=== PATIENT | female | born 1995 | race Caucasian/White ===

== ENCOUNTER 2017-02-27 03:16 | Inpatient (IN) | payer BC ==
[2017-02-27] MEDS ORDERED: NS 0.9% 1000 ML* 1,000 ML IV ONE (03:46)
[2017-02-27] MEDS ORDERED: Ketorolac INJ* 30 MG/ML 1 ML VIAL IV PUSH ONE (03:47)
[2017-02-27 03:57] LABS: Hematocrit 43 % (35-47); Mean Corpuscular HGB Conc 33 g/dl (31-36); Mean Corpuscular Hemoglobin 26 pg (27-31); Mean Corpuscular Volume 79 fL (80-97); Mean Platelet Volume 9 um3 (7.4-10.4); Red Blood Count 5.41 10^6/ul (4.0-5.4); Red Cell Distribution Width 15 % (10.5-15); White Blood Count 11.6 10^3/ul (3.5-10.8)
[2017-02-27 04:08] LABS: ALT 27 U/L (7-52); AST 32 U/L (13-39); Albumin 3.9 g/dL (3.2-5.2); Alkaline Phosphatase 63 U/L (34-104); Anion Gap 5 mmol/L (2-11); BUN/Creatinine Ratio 17.9 (8-20); Blood Urea Nitrogen 15 mg/dL (6-24); CO2 Carbon Dioxide 24 mmol/L (22-32); Calcium 8.7 mg/dL (8.6-10.3); Chloride 104 mmol/L (101-111); EGFR African American 112.3 (>60); EGFR Non-African American 87.3 (>60); Globulin 2.6 g/dL (2-4); Glucose 121 mg/dL (70-100); Potassium 3.9 mmol/L (3.5-5.0); Sodium 133 mmol/L (133-145); Total Protein 6.5 g/dL (6.4-8.9)
[2017-02-27 04:11] LABS: Troponin I 1.99 ng/mL (<0.04)
--- NOTE | 2017-02-27 04:12 | ED ---
Marcin Simon Alfonso, scribed for Tomas Smith MD on 02/27/17 at 0349 . HPI Chest Pain - HPI Summary HPI Summary: This patient is a 21 year old female presenting to [facility] c/o diffuse pressured chest pain since two days ago. She reports the constant pain has gradually became worse. The pain is rated 5/10 in severity. Her CP is not alleviated by ibuprofen. Sx aggravated by position and alleviated by nothing. She reports a headache since 5 days ago. She denies N/V, SOB, cough, and fever. Patient states she thinks this is a "lupus flare." No PMHx of cardiac disease per patient. - History of Current Complaint Chief Complaint: EDGeneral Hx Obtained From: Patient Onset/Duration: Started Days Ago - 2 days, Atraumatic, Worse Since Timing: Constant Initial Severity: Moderate Current Severity: Moderate Pain Intensity: 5 Pain Scale Used: 0-10 Numeric Chest Pain Location: Diffuse Character: Pressure/Squeezing Aggravating Factor(s): Position Alleviating Factor(s): Nothing Associated Signs and Symptoms: Positive: Chest Pain - Pressued CP, Headaches. Negative: Shortness of Breath, Fever, Nausea, Cough, Vomiting - Allergy/Home Medications Allergies/Adverse Reactions: Allergies Allergy/AdvReac Type Severity Reaction Status Date / Time Bacitracin [From Neosporin] Allergy Intermediate Blisters Verified 02/27/17 03: 25 Neomycin [From Neosporin] Allergy Intermediate Blisters Verified 02/27/17 03:25 Polymyxin B [From Neosporin] Allergy Intermediate Blisters Verified 02/27/17 03: 25 Home Medications: Home Medications NK [No Home Medications Reported] 02/27/17 [History Confirmed 02/27/17] PMH/Surg Hx/FS Hx/Imm Hx Sensory History: Denies: Hx Deafness Opthamlomology History: Denies: Hx Legally Blind Infectious Disease History: No Infectious Disease History: Denies: Traveled Outside the [place] in Last 30 Days - Family History Known Family History: Positive: Other - Cancers - Social History Lives: With Family - Mother Alcohol Use: Occasionally Substance Use Type: Reports: None Smoking Status (MU): Never Smoked Tobacco Have You Smoked in the Last Year: No Review of Systems Negative: Fever Positive: Chest Pain - Pressured CP for 2 days Negative: Shortness Of Breath, Cough Negative: Vomiting, Nausea Positive: Headache - 5 days All Other Systems Reviewed And Are Negative: Yes Physical Exam Triage Information Reviewed: Yes Vital Signs On Initial Exam: Initial Vitals Temp Pulse Resp BP Pulse Ox 99.0 F 124 16 118/66 99 02/27/17 03:20 02/27/17 03:20 02/27/17 03:20 02/27/17 03:20 02/27/17 03:20 Vital Signs Reviewed: Yes Appearance: Positive: Well-Appearing, Pain Distress - mild discomfort Skin: Positive: Warm Head/Face: Positive: Normal Head/Face Inspection Eyes: Positive: GERALD ENT: Positive: Hearing grossly normal, Pharynx normal Neck: Positive: Supple Respiratory/Lung Sounds: Positive: Clear to Auscultation, Breath Sounds Present Cardiovascular: Positive: RRR. Negative: Murmur Abdomen Description: Positive: Nontender, Soft Bowel Sounds: Positive: Present Musculoskeletal: Positive: Strength/ROM Intact Neurological: Positive: Sensory/Motor Intact, Alert, Oriented to Person Place, Time, Normal Gait - Soledad Coma Scale Coma Scale Total: 15 Diagnostics - Vital Signs Vital Signs Temp Pulse Resp BP Pulse Ox 02/27/17 03:31 99.1 F 125 18 106/54 100 02/27/17 03:20 99.0 F 124 16 118/66 99 - Laboratory Lab Results: Lab Results 02/27/17 02/27/17 02/27/17 Range/Units 03:31 03:31 03:31 WBC 11.6 H (3.5-10.8) 10^3/ul RBC 5.41 H (4.0-5.4) 10^6/ul Hgb 14.0 (12.0-16.0) g/dl Hct 43 (35-47) % MCV 79 L (80-97) fL MCH 26 L (27-31) pg MCHC 33 (31-36) g/dl RDW 15 (10.5-15) % Plt Count 116 L (150-450) 10^3/ul MPV 9 (7.4-10.4) um3 Neut % (Auto) 72.3 (38-83) % Lymph % (Auto) 13.5 L (25-47) % [place] % (Auto) 13.2 H (1-9) % Eos % (Auto) 0.7 (0-6) % Baso % (Auto) 0.3 (0-2) % Absolute Neuts (auto) 8.4 H (1.5-7.7) 10^3/ul Absolute Lymphs (auto) 1.6 (1.0-4.8) 10^3/ul Absolute Monos (auto) 1.5 H (0-0.8) 10^3/ul Absolute Eos (auto) 0.1 (0-0.6) 10^3/ul Absolute Basos (auto) 0 (0-0.2) 10^3/ul Absolute Nucleated RBC 0 10^3/ul Nucleated RBC % 0 Sodium 133 (133-145) mmol/L Potassium 3.9 (3.5-5.0) mmol/L Chloride 104 (101-111) mmol/L Carbon Dioxide 24 (22-32) mmol/L Anion Gap 5 (2-11) mmol/L BUN 15 (6-24) mg/dL Creatinine 0.84 (0.51-0.95) mg/dL Est GFR ( Amer) 112.3 (>60) Est GFR (Non-Af Amer) 87.3 (>60) BUN/Creatinine Ratio 17.9 (8-20) Glucose 121 H (70-100) mg/dL Lactic Acid 1.1 (0.5-2.0) mmol/L Calcium 8.7 (8.6-10.3) mg/dL Total Bilirubin 0.50 (0.2-1.0) mg/dL AST 32 (13-39) U/L ALT 27 (7-52) U/L Alkaline Phosphatase 63 (34-104) U/L Troponin I 1.99 H* (<0.04) ng/mL Total Protein 6.5 (6.4-8.9) g/dL Albumin 3.9 (3.2-5.2) g/dL Globulin 2.6 (2-4) g/dL Albumin/Globulin Ratio 1.5 (1-3) Result Diagrams: 02/27/17 03:31 02/27/17 03:31 Lab Statement: Any lab studies that have been ordered have been reviewed, and results considered in the medical decision making process. - Radiology CXR Radiology Interpretation Completed By: ED Physician - No acute disease - CT Chest/Thorax CTA CT Interpretation Completed By: Radiologist - No evidence of pathology - EKG 0329 Cardiac Rate: Tachycardia - BPM 124 EKG Rhythm: Sinus Tachycardia 0531 Cardiac Rate: Tachycardia - BPM 120 EKG Rhythm: Sinus Tachycardia EKG Comparison: No Significant Change - 32802/27/2017 Re-Evaluation - Re-Evaluation First Eval Change: Improved - pt with cp, pain free now and elevated troponins, case d/w hospitalist who discussed case with fisher seal Chest Pain Course/Dx - Diagnoses Provider Diagnoses: ACS (acute coronary syndrome) - Provider Notifications Discussed Care Of Patient With: Cornelius Meza Time Discussed With Above Provider: 05:28 Instructed by Provider To: Admit As Inpatient - Consulted Dr. Meza ( Hospitalist) who agrees to admit. - Critical Care Time Critical Care Time: 30-74 min Discharge - Discharge Plan Condition: Fair Disposition: ADMITTED TO [facility] [place] The documentation as recorded by the Marcin woodruff Alfonso accurately reflects the service I personally performed and the decisions made by , Tomas Smith MD.
[2017-02-27 04:37] LABS: C Reactive Protein 14.62 mg/L (< 5.00)
[2017-02-27] MEDS ORDERED: Iohexol 350* (CONTRAST) 500 ML MDV IV ONE (04:46)
[2017-02-27 05:18] LABS: Benzodiazepine Urine Screen None Detected (None Detect)
[2017-02-27 05:26] LABS: Troponin I 3.32 ng/mL (<0.04)
--- NOTE | 2017-02-27 05:35 | HP ---
H&P (Free Text) History and Physical: PCP: Kaelyn Byrnes MD Date/Time of Evaluation: 02/27/2017 0440 CC: chest pain HPI: Ms Alcazar is a 21YO female HX cutaneous lupus & urolithiasis who presents with non-exertional, non-radiating dull/pressure-like chest pain for the past 2 days. Pain was initially intermittent becoming continuous Tuesday evening. Around ~0200 her phone woke her up and she noticed the chest pain to be 7/10, the worst thus far which kept her awake, but has since spontaneously decreased to 2/10. She received IV ketorolac with subsequent resolution of pain. She denies associated SOB, palpitations, N/V sweats, or light-headedness. She denies HX of similar. Initial troponin was 1.9 with an ECG showing sinus tachycardia in the 120s, no ischemia. A repeat troponin was drawn and sent revealing an increase to 3.3 with a repeat ECG showing dynamic changes in the inferior leads. A CTA chest was reported as negative for PE, aneurysm, and dissection. Case was reviewed with Kristy Fajardo MD cardiology who deferred to Julio Moore MD interventional cardiology who was apprised of the situation and is en route to evaluate. PMedHx cutaneous lupus erythematosus urolithiasis headaches Ambulatory Orders Vitamin D-1000 12/29/12 Prozac 40 mg PO Q24HR 12/03/13 Allergies Bacitracin [From Neosporin] Allergy (Intermediate, Verified 02/27/17 03:25) Blisters Neomycin [From Neosporin] Allergy (Intermediate, Verified 02/27/17 03:25) Blisters Polymyxin B [From Neosporin] Allergy (Intermediate, Verified 02/27/17 03:25) Blisters PSurgHx T&A tympanostomy tubes SocHx: no tobacco, rare alcohol, denies recreational drugs; single, no children ; lives with her mother; full code status FamHx: maternal great GF: passed of CAD in his 50s; maternal aunt: DVT ROS: as above, otherwise reviewed and all were negative Constitutional: NAD, normally developed, overweight white female vitals: Vital Signs Temp 37.3 C 02/27/17 03:31 Pulse 119 02/27/17 05:06 Resp 18 02/27/17 05:06 BP 96/62 02/27/17 04:19 Pulse Ox 100 02/27/17 05:06 Intake & Output 02/26/17 02/26/17 02/27/17 11:59 23:59 11:59 Weight 70.307 kg HEENM: atraumatic; sclera/conjunctiva: non-icteric/clear; hearing: clinically intact; oropharynx: clear, mucosa moist Pulmonary: clear to auscultation bilaterally, good aeration, no accessory muscle use CV: RR/RR, normal S1S2, no carotid bruit, no jugular venous distention, 2+ B DP/ PT, no edema Abdominal: soft, non-distended, non-tender, no rebound/guarding/rigidity, normoactive bowel sounds, no hepatosplenomegaly or masses, no costovertebral angle tenderness Musculoskeletal: general: grossly intact; gait: stable Integumental: normal appearance and texture of exposed skin Psychiatric orientation: AA&O to PPS affect: calm mood: pleasant eye contact: good content: reliable responses: timely insight: good Testing: Lab Results 02/27/17 02/27/17 02/27/17 Range/Units 03:31 03:31 03:31 WBC 11.6 H (3.5-10.8) 10^3/ul RBC 5.41 H (4.0-5.4) 10^6/ul Hgb 14.0 (12.0-16.0) g/dl Hct 43 (35-47) % MCV 79 L (80-97) fL MCH 26 L (27-31) pg MCHC 33 (31-36) g/dl RDW 15 (10.5-15) % Plt Count 116 L (150-450) 10^3/ul MPV 9 (7.4-10.4) um3 Neut % (Auto) 72.3 (38-83) % Lymph % (Auto) 13.5 L (25-47) % [place] % (Auto) 13.2 H (1-9) % Eos % (Auto) 0.7 (0-6) % Baso % (Auto) 0.3 (0-2) % Absolute Neuts (auto) 8.4 H (1.5-7.7) 10^3/ul Absolute Lymphs (auto) 1.6 (1.0-4.8) 10^3/ul Absolute Monos (auto) 1.5 H (0-0.8) 10^3/ul Absolute Eos (auto) 0.1 (0-0.6) 10^3/ul Absolute Basos (auto) 0 (0-0.2) 10^3/ul Absolute Nucleated RBC 0 10^3/ul Nucleated RBC % 0 D-Dimer, Quantitative (Less Than 230) ng/mL Sodium 133 (133-145) mmol/L Potassium 3.9 (3.5-5.0) mmol/L Chloride 104 (101-111) mmol/L Carbon Dioxide 24 (22-32) mmol/L Anion Gap 5 (2-11) mmol/L BUN 15 (6-24) mg/dL Creatinine 0.84 (0.51-0.95) mg/dL Est GFR ( Amer) 112.3 (>60) Est GFR (Non-Af Amer) 87.3 (>60) BUN/Creatinine Ratio 17.9 (8-20) Glucose 121 H (70-100) mg/dL Lactic Acid 1.1 (0.5-2.0) mmol/L Calcium 8.7 (8.6-10.3) mg/dL Total Bilirubin 0.50 (0.2-1.0) mg/dL AST 32 (13-39) U/L ALT 27 (7-52) U/L Alkaline Phosphatase 63 (34-104) U/L Total Creatine Kinase Pending CK-MB (CK-2) Pending Troponin I 1.99 H* (<0.04) ng/mL C-Reactive Protein 14.62 H (< 5.00) mg/L Total Protein 6.5 (6.4-8.9) g/dL Albumin 3.9 (3.2-5.2) g/dL Globulin 2.6 (2-4) g/dL Albumin/Globulin Ratio 1.5 (1-3) Beta HCG, Quant < 0.60 mIU/mL Urine Opiates Screen (None Detect) Ur Barbiturates Screen (None Detect) Ur Phencyclidine Scrn (None Detect) Ur Amphetamines Screen (None Detect) U Benzodiazepines Scrn (None Detect) Urine Cocaine Screen (None Detect) U Cannabinoids Screen (None Detect) 02/27/17 02/27/17 02/27/17 Range/Units 03:31 04:54 04:54 WBC (3.5-10.8) 10^3/ul RBC (4.0-5.4) 10^6/ul Hgb (12.0-16.0) g/dl Hct (35-47) % MCV (80-97) fL MCH (27-31) pg MCHC (31-36) g/dl RDW (10.5-15) % Plt Count (150-450) 10^3/ul MPV (7.4-10.4) um3 Neut % (Auto) (38-83) % Lymph % (Auto) (25-47) % [place]ie % (Auto) (1-9) % Eos % (Auto) (0-6) % Baso % (Auto) (0-2) % Absolute Neuts (auto) (1.5-7.7) 10^3/ul Absolute Lymphs (auto) (1.0-4.8) 10^3/ul Absolute Monos (auto) (0-0.8) 10^3/ul Absolute Eos (auto) (0-0.6) 10^3/ul Absolute Basos (auto) (0-0.2) 10^3/ul Absolute Nucleated RBC 10^3/ul Nucleated RBC % D-Dimer, Quantitative 507 H (Less Than 230) ng/mL Sodium (133-145) mmol/L Potassium (3.5-5.0) mmol/L Chloride (101-111) mmol/L Carbon Dioxide (22-32) mmol/L Anion Gap (2-11) mmol/L BUN (6-24) mg/dL Creatinine (0.51-0.95) mg/dL Est GFR ( Amer) (>60) Est GFR (Non-Af Amer) (>60) BUN/Creatinine Ratio (8-20) Glucose (70-100) mg/dL Lactic Acid (0.5-2.0) mmol/L Calcium (8.6-10.3) mg/dL Total Bilirubin (0.2-1.0) mg/dL AST (13-39) U/L ALT (7-52) U/L Alkaline Phosphatase (34-104) U/L Total Creatine Kinase 174 CK-MB (CK-2) 17.4 H Troponin I 3.32 H* (<0.04) ng/mL C-Reactive Protein (< 5.00) mg/L Total Protein (6.4-8.9) g/dL Albumin (3.2-5.2) g/dL Globulin (2-4) g/dL Albumin/Globulin Ratio (1-3) Beta HCG, Quant mIU/mL Urine Opiates Screen None detected (None Detect) Ur Barbiturates Screen None detected (None Detect) Ur Phencyclidine Scrn None detected (None Detect) Ur Amphetamines Screen None detected (None Detect) U Benzodiazepines Scrn None detected (None Detect) Urine Cocaine Screen None detected (None Detect) U Cannabinoids Screen None detected (None Detect) ECG, personally reviewed: sinus tachycardia rate 124, no ischemia : repeat: sinus tachycardia rate 120, ST flattening in II/AVF with newly inverted T-wave in III CXR, personally reviewed: no acute pathology CTA chest, personally reviewed: no PE, final report pending Impression: 21F HX cutaneous lupus presents with atypical chest pain and elevation of troponin DIAGNOSIS & PLAN Primary NSTEMI vs pericarditis/myocarditis : aspirin 324mg chew x1 : metoprolol 25mg PO x1 : heparin 4k units IV x1 : ticagrelor 180mg PO x1 : supplemental oxygen : Julio Moore MD interventional cardiology consulted, will evaluate in ED : ECHO this AM : ICU monitoring : supportive care Secondary cutaneous lupus erythematosis : consider rheumatology consult for input on possible relationship to above Admission Rational: inpatient for NSTEMI, inappropriate for outpatient setting DVTp: heparin GTT Code Status: full HCP: Mother
[2017-02-27] MEDS ORDERED: Metoprolol Tartrate TAB* 25 MG PO ONE (05:42)
[2017-02-27] MEDS ORDERED: Heparin DRIP 25,000 UNITS(*) 25,000 UNITS/500 ML BAG IVPB SCH (05:45)
[2017-02-27] MEDS ORDERED: Aspirin Low Dose CHEW TAB* 81 MG PO ONE (05:48)
[2017-02-27] MEDS ORDERED: Metoprolol Tartrate IV* 1 MG/ML 5 ML VIAL ONE (05:49)
[2017-02-27] MEDS ORDERED: Ticagrelor* 90 MG TAB PO ONE ×2 (05:49→05:50)
[2017-02-27] MEDS ORDERED: Heparin for STEMI(*) 5,000 UNITS/ML 1 ML VIAL IV ONE (05:49)
[2017-02-27] MEDS ORDERED: Metoprolol Tartrate TAB* 25 MG ONE (05:52)
[2017-02-27] MEDS ORDERED: Aspirin Low Dose CHEW TAB* 81 MG ONE (05:57)
[2017-02-27] MEDS ORDERED: Heparin VIAL(*) 5000 UNITS/ML VIAL (FIVE THOUSAND) IV PRN (06:33)
[2017-02-27 06:39] LABS: Creatine Kinase 118 U/L (10-223)
[2017-02-27] MEDS ORDERED: Heparin VIAL(*) 5000 UNITS/ML VIAL (FIVE THOUSAND) IV SCH (07:00)
[2017-02-27] MEDS ORDERED: Morphine INJ* 2 MG/ML 1 ML SYRINGE IV PRN ×2 (07:12→18:46)
[2017-02-27] MEDS ORDERED: Ondansetron INJ* 2 MG/ML VIAL IV PRN (07:12)
[2017-02-27] MEDS ORDERED: CMC:Melatonin (NF) 3 MG TAB PO PRN (07:12)
[2017-02-27] MEDS ORDERED: NS 0.9% 1000 ML* 1,000 ML IV SCH (07:15)
--- NOTE | 2017-02-27 07:53 | RAD ---
INDICATION: Chest pain. COMPARISON: Comparison is made with a prior study from March 11, 2014. TECHNIQUE: Dual-energy PA and lateral views of the chest were obtained. FINDINGS: The heart is within normal limits in size. Mediastinal and hilar contours appear within normal limits. The lungs are clear. No pleural effusion is present. IMPRESSION: NO EVIDENCE FOR ACTIVE CARDIOPULMONARY DISEASE.
--- NOTE | 2017-02-27 08:00 | RAD ---
INDICATION: Chest pain and elevated d-dimer. COMPARISON: Correlation is made with a prior chest x-ray study from February 27, 2017. TECHNIQUE: A CT angiogram of the chest was performed with intravenous following intravenous injection of 64 ml of Omnipaque 350 nonionic contrast. Contiguous axial sections were obtained from the lung apices through the lung bases. Images were reconstructed in the coronal and sagittal planes. FINDINGS: There is relatively homogeneous opacification of the pulmonary arteries. No intraluminal filling defect or pulmonary embolism is seen. The heart is within normal limits in size. No pericardial effusion is present. The thoracic aorta is normal in caliber and demonstrates homogeneous contrast opacification. No significant enlarged mediastinal or hilar lymph nodes are seen. There is soft tissue density in the anterior mediastinum most consistent with residual thymus tissue. The lungs are clear. No pleural effusion is seen. No significant focal osseous abnormality is seen. IMPRESSION: NO EVIDENCE FOR PULMONARY EMBOLISM.
[2017-02-27 08:03] LABS: Erythrocyte Sed Rate 10 mm/Hr (0-14)
--- NOTE | 2017-02-27 10:22 | CONSULT ---
Consult Consult: Ms. Sidra Alcazar is a 21 year old woman with a history of chronic intermittent tumid lupus. Prior workup in 2015 revealed a negative MANISH, and complements and DSDNA were normal in September 2016. Given the histologic findings of her skin as well as negative symptoms and serologies, it had been felt that her risk for progression to systemic lupus was low. She now presents with chest wall pain (now resolved), elevated troponin levels, elevated D Dimer, and ECG changes. We discussed that lupus, being a protean disease, may change, evolve, and become systemic, and myocarditis is a potential manifestation. Given the recent symptoms and findings, her DSDNA complements and urinalysis are being checked. I also added a repeat MANISH and ANAMIKA panel. If serologies are consistent with systemic lupus and she remains symptomatic, consider addition of corticosteroids. Will follow; thanks.
[2017-02-27] MEDS: Acetaminophen TAB* 325 MG PO PRN ×2 (10:52→17:59)
[2017-02-27 11:01] LABS: Urine Bacteria 1+ (Absent); Urine Bilirubin Negative (Negative); Urine Glucose Negative (Negative); Urine Nitrite Negative (Negative)
--- NOTE | 2017-02-27 13:29 | CONS ---
CONSULTATION REPORT: DATE OF CONSULT: 02/27/17 CONSULTING PHYSICIAN: Dr. Meza. REASON FOR CONSULT: Lupus. HISTORY OF PRESENT ILLNESS: Ms. Sidra Alcazar is a pleasant 21-year-old woman with a longstanding history of tumid lupus. She was seen by me in 2015. At the time, her connective tissue disease panel was negative and her double- stranded DNA and complements were normal. She was noted to have some hematuria , but it was felt to be possibly secondary to her menstrual cycle and she was advised to get a repeat urinalysis in 1 or 2 months. In terms of her tumid lupus, it has been biopsy proven and she has seen Dermatology for this. Whenever it flares, which can occur in periods of stress, she applies topical triamcinolone as needed. In terms of her more recent illness, she presented with non-exertional, dull-like pressure sensation along the mid part of her chest, which has been noted over the past 2 days. It became continuous on Tuesday evening and around 2 in the morning, she noted that with waking up, her chest pain to be around 7/10 and it progressed to the point that it was difficult to go back to sleep. It was somewhat related to taking a deep breath , but it decreased in severity to about 2/10. She came to the emergency room and was found to have an elevated troponin level. 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 She has received IV ketorolac and currently she feels well with resolution of her pain. She denies any other symptoms at this point, specifically she denies any shortness of breath, palpitations, sweating or lightheadedness. As noted above , her troponin was initially elevated and her EKG showed a sinus tachycardia, but no ischemic events. A more recent troponin was drawn and revealed an increase to 3.3 and there were some changes in the inferior leads on the EKG. A CT of the chest was negative for pulmonary embolism or dissection. Cardiology is following as well. In terms of her past history in regards to her potential connective tissue disorder in April 2016, an HIV was nonreactive and her antinuclear antibody was negative. Her double-stranded DNA was also negative at that time and her sed rate was normal at 10. She was seen by me in June and her skin biopsy was reviewed. She specifically had a punch biopsy done in January 2015, which showed a superficial and deep perivascular lymphocytic infiltrate with increased dermal mucin, they were nonspecific, but felt to be collections representative of tumid lupus erythematosus or a possible Jessner's lymphocytic infiltrate. There were no eosinophils seen and there was no basement membranes on thickening. PAST MEDICAL HISTORY: In terms of other past medical history, she has a history of urolithiasis in the past as well as history of anxiety and some headaches. PAST SURGICAL HISTORY: Includes tonsillectomy. Also she has had tympanostomy tubes placed as well too. MEDICATIONS: She had been on Prozac in the past for anxiety. ALLERGIES: Include BACITRACIN, NEOMYCIN and NEOSPORIN. FAMILY HISTORY: Notable for maternal great grandfather having coronary artery disease and maternal aunt had DVTs. Family history is also notable for thyroid disease in the past. SOCIAL HISTORY: No tobacco use. Rare alcohol use. No recreational drugs. She has no children and she lives with her mother who I also spoke with today. She has had no recent accidents or viral infections. REVIEW OF SYSTEMS: Constitutional: She denies dehydration, change in energy level, or weight loss. Eyes: Denies discharge, dryness, irritation or redness. ENT: She denies, dry mouth, hemoptysis, jaw pain or odynophagia. She denies difficulty swallowing. Cardiovascular: Currently denies chest wall pain , shortness of breath or irregular heart rate. Respiratory: Denies cough, night sweats or poor sleep quality except for last night. GI: Denies abdominal pain, anorexia, colitis, or gas or bloating. Musculoskeletal: She denies deformities, sciatica or muscle spasms. Skin: She has had a recent outbreak of her tumid lupus in her lower extremity along her feet, but it seems to have been resolving recently. She currently has very minimal if any residual rash from this. Neurologic: She denies any difficulties with balance, memory loss, numbness or tingling. Psychiatric: As noted above. PHYSICAL EXAMINATION: Vital Signs: Temperature is 37.3 degrees Celsius, pulse of initially 119, respiratory rate of 18, blood pressure of 96/62, pulse ox of 100%. Weight is 78.307 kg. General: She is a pleasant woman, sitting up, in no acute distress. HEENT: Normocephalic, atraumatic. Pupils equal, round, and reactive to light and accommodate. Extraocular movements are intact. Respiratory: Lungs are clear to auscultation bilaterally. Cardiovascular Exam : Revealed a regular rate and rhythm. Normal S1 and S2. No carotid bruits. No jugular venous distention and no edema. Abdomen: Soft, nontender, nondistended. No rebound, no guarding or rigidity. Normoactive bowel sounds with no hepatosplenomegaly. No costovertebral angle tenderness. Musculoskeletal: She had no synovitis of her joints. She had full range of motion of her joints. Integument: Appears to be normal in the upper extremities. There is minimal periungual erythema around the nail beds of the feet, but otherwise there are no abnormalities and no rash. Psychiatric: Pleasant, oriented. Normal affect. Neurologic: Motor strength 5/5 in the upper and lower extremities. : No CVA tenderness. Endocrine: No glandular swelling. Lymph: No lymph node swelling. DIAGNOSTIC STUDIES/LAB DATA: She had a white count initially of 11.6, hemoglobin of 14, platelet count of 116,000. Sodium 133, calcium 8.7. AST and ALT were normal. D-dimer was 507 and glucose of 121. Her troponin was initially 1.99, now went to 3.32. Urine drug screen was negative. Beta HCG was less than 0.6. Chest CT as noted above showed no evidence of pulmonary embolism. There is no lymphadenopathy noted. ASSESSMENT AND PLAN: Ms. Sidra Alcazar is a 21-year-old woman with longstanding history of tumid lupus. A more recent workup in 2016 revealed a negative MANISH, negative double-stranded DNA and normal complements. She now has chest wall pain syndrome which is resolved. There is a concern for possible myocarditis given her EKG findings and elevated troponin levels. Although her MANISH was negative in the past which makes systemic lupus erythematosus unlikely, we discussed how occasionally lupus being heterogeneous condition can change and evolve over time. Therefore, I am concerned about the possibility still of some sort of evolving condition towards systemic lupus. It is noted; however, that the histologic findings that she has had in the past, specifically tumid lupus seem to carry a very little, if any, risk for systemic lupus. However, she did have a lymphocytic infiltrate and so it should be considered whether she had some other overlapping form of cutaneous lupus and perhaps this represents an increased risk for systemic lupus. Therefore, I will check her urinalysis, especially in light of her history of hematuria. I would repeat the double- stranded DNA, complements. I would also like to recheck her antinuclear antibody. I would also like to check viral serologies including CMV given that she does have symptoms of myocarditis. I would check an extractable nuclear antigen panel and I do understand that complements are pending as well too. I think these will all be helpful in terms of seeing if she could have a risk for some kind of evolution to systemic lupus erythematous. Also consider a viral etiology as well. At this point in time, she is receiving conservative therapy. While corticosteroids may not specifically help an idiopathic myocarditis, they could be helpful if there is a concern for connective tissue disorder. Therefore, if her serologies and/or if her symptoms progress and are positive, then she may benefit from a trial of corticosteroids such as prednisone 60 mg daily. Otherwise, I would wait and see what these latest serologies show. In terms of her thrombocytopenia, I would also follow her CBC as well too. Overlap Pleuritic chest wall pain: agree with Motrin and trial of Colchicine. Thrombocytopenia: would follow. Hematuria: would follow; if lupus workup is negative, she will need follow up with urology as she has a history of hematuria [id number]/[facility] #: [id number] FRANCISCA
--- NOTE | 2017-02-27 14:19 | CONS ---
CC: Britt Byrnes MD; Krishna Harmon MD CARDIOLOGY CONSULTATION: I was kindly asked to see this patient for cardiology consultation by Dr. Meza and Dr. Lance. DATE OF CONSULT: 02/27/17 REASON FOR CARDIOLOGY CONSULTATION: Chest pain with elevated troponins, concern for non-Q-wave ID. HISTORY OF PRESENT ILLNESS: Ms. Alcazar is a 21-year-old lady with a history of cutaneous lupus. On 02/25/17, i.e. 2 days ago, she began noticing episodes of chest pain, which were coming and going, beginning in the afternoon of that date , lasting about 15 to 20 minutes and then would resolve. These were not associated with exertion. No associated shortness of breath. Yesterday, she was having the chest pain more consistently for up to 18 hours, ranging between 3/10 to 6/10. This morning, the patient's phone went off @ 0200 because of an ANGELICA alert and she noted that she was having 7/10 to 8/10 chest pain with some radiation down her upper left arm and towards her left neck. She became concerned and came to [facility] ER. Here, she was found to have elevated troponin and has received Toradol with complete resolution of her chest pain. She was evaluated by my partner, Dr. Tacho Moore of [facility] Invasive services, who did not feel urgent catheterization was required. The patient has had an echocardiogram also (please see also that report), which shows normal LVEF with wall motion and is essentially benign. Currently, the patient has no chest pain. She does have headaches, which she has been having for the past week. She also notes some type of URI symptoms over the past week. Of note, the patient is accompanied by her mother, aunt, and sister with the patient's verbal consent, where I am consulting on the patient in the intensive care unit. PAST MEDICAL HISTORY: Significant for cutaneous lupus. OUTPATIENT MEDICATIONS: Some type of dermatologic cream for her cutaneous lupus. ALLERGIES: Allergies to medications are listed as BACITRACIN, NEOMYCIN, and POLYMYXIN B. She denies shrimp, seafood, or dye allergy. FAMILY HISTORY: Negative for cardiac disease in her immediate family; however, her paternal great grandfather did pass away of an ID at the age of 54. Her paternal great grandmother had a history of diabetes. No family history of stroke. Her mother has a history of papillary thyroid cancer. Her paternal grandfather has a history of skin cancer. SOCIAL HISTORY: The patient is single, lives with her mother. 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 She is majoring in psychology in college. She does not smoke cigarettes, abuse alcohol. No use of illicit drugs. She does try to go to the gym 3 times per week. REVIEW OF SYSTEMS: Denies personal history of stroke, cancer, vomiting up blood , coughing up blood, bright red blood per rectum, bleeding stomach ulcers, cholelithiasis. She has a history of renal calculi with last occurrence on her 18th birthday. She did not require lithotripsy. She denies asthma, emphysema. She has had a history of pneumonia as a child, not requiring hospitalization. She denies tuberculosis, sleep apnea, home oxygen use, diabetes, hypertension, prior ID, congestive heart failure, cardiac surgery, cardiac murmurs, palpitations, or fainting. She has a history of anxiety disorder. She has a history of cutaneous lupus x2 years, she follows with material combiner, Dr. Harmon. The patient denies psoriasis, seizures, Parkinson's disease, myasthenia gravis, thyroid disorders, liver disorders, kidney disorders, claudication symptoms, pulmonary emboli, deep venous thrombosis, peripheral arterial disease, peripheral edema. She has rare heartburn. All the review of systems are negative except as described above. PHYSICAL EXAM: General Exam: She is a pleasant young lady, in no acute distress. She does have some light sensitivity from her headache. BP 102/64 P 91 Temp 98.8. HEENT: Shows the cranium is normocephalic and atraumatic. She has moist mucosal membranes. She clearly states she has no chest pain at this time. Neck: Veins are not distended. There are no carotids bruits visible. Skin/Integumentary Exam: Warm and perfused. The patient points out some pustular type lesions, which appear well healing, which she states are from her cutaneous lupus on her right ankle region. Affect is appropriate. She appears oriented. No significant kyphoscoliosis on back exam. Lungs: Clear to auscultation. No wheezing, no rales. Cardiac Exam: S1, S2. Regular rate. Soft 3 component rub heard. No murmurs. No gallop. PMI is nondisplaced. Abdomen: Soft, nondistended. Appears benign. Extremities: Without significant edema. Pulses appear intact. DIAGNOSTIC STUDIES/LAB DATA: The patient had a CTA of her chest, which states no pulmonary embolus, no dissection. Heart size normal. No pleural, nor pericardial effusion. No PE. No dissection. The patient had a 12-lead EKG completed, 02/27/17, at 3:29 a.m., which shows sinus tachycardia 124 beats per minute. Followup EKG completed, 02/27/17, at 5:31, shows subtle inferior Q-wave changes, not diagnostic, and it is similar to a followup EKG done at 6:16 a.m. Echocardiogram completed today (please see also that report), shows normal left ventricular size and systolic function with EF of 55% to 60% with no wall motion abnormalities. Normal cardiac chamber sizes and functionally benign heart valves. No significant pericardial effusion. Sodium 132, potassium 3.9, chloride 104, bicarbonate 24, BUN 15, creatinine 0.84 , glucose 121. Troponin was 1.99 followed by 3.32. Total CK 118 with a CK-MB of 11.2 followed by CK of 174, but CK-MB is 17.4. CRP 14.6. Beta-hCG negative. D- dimer 507. White blood cell count 11.6, hematocrit 43, platelet count 116 and it has been normal in the past at 225. Sed rate 10. IMPRESSION: Ms. Alcazar is a 21-year-old young lady with a history of cutaneous lupus, admitted with chest pain with atypical features, which has resolved with Toradol and she is found to have elevated troponin. She has no wall motion abnormality on echocardiogram and in fact her echo is essentially benign ( please see also that report). Her presentation appears most consistent with myopericarditis, especially given 3 component rub on exam, relief with Toradol and recent upper respiratory infection. RECOMMENDATIONS: 1. I think it is reasonable to complete heparin drip until her troponin peaks. I would however watch closely her platelet count, which may be suppressed from viral infection. 2. For her myopericarditis, recommend to treat with ibuprofen 600 mg p.o. t.i.d. for a minimum of 6 weeks with proton pump inhibitor and with colchicine 1 to 2 mg first day followed by a maintenance dose of 0.5 to 1 mg q.d. x3 months. 3. Plan for ischemic evaluation prior to discharge with a nuclear exercise stress test. At this time, I agree there is no indication for cardiac catheterization (as she has been evaluated by Dr. Moore of [facility] invasive services earlier today), including benefits appeared to be outweighed by potential risks and the patient is currently pain free with normal wall motion on echocardiogram. I have discussed this in detail with the patient, her mother , her aunt, and her sister and they are all in agreement with these recommendations including no cath at this time. The patient would follow up with myself as an outpatient from a cardiac standpoint. Other management as per the hospitalist medicine service and I have discussed the case with Dr. Lance. Many thanks for this kind cardiac consultation opportunity. Please do not hesitate to contact me if you have any questions or concerns regarding the patient's cardiovascular consultative care. We will follow with you. [id number]/[facility] #: [id number] FRANCISCA
--- NOTE | 2017-02-27 15:57 | PN ---
Subjective Date of Service: 02/27/17 Interval History: Seen and examined this AM with mother at bedside Pt has been CP free since admission to ED after she received ketorolac Denies N/V, LH, SOB, palps Objective Active Medications: Acetaminophen (Tylenol Tab*) 650 mg PO Q6H PRN PRN Reason: FEVER/PAIN Last Admin: 02/27/17 10:52 Dose: 650 mg Colchicine (Colcrys*) 0.6 mg PO DAILY [facility] Heparin Sodium (Porcine) (Heparin Vial(*)) 4,000 units IV ED ONCE SAAD Last Admin: 02/27/17 06:11 Dose: 4,000 units Ibuprofen (Advil Tab*) 600 mg PO TID [facility] Melatonin (Melatonin (Nf)) 3 mg PO BEDTIME PRN; Protocol PRN Reason: Sleep Omeprazole (Prilosec Cap*) 20 mg PO DAILY@0600 [facility] Ondansetron HCl (Zofran Inj*) 4 mg IV Q6H PRN PRN Reason: NAUSEA Vital Signs 02/27/17 02/27/17 02/27/17 07:32 08:00 08:10 Temperature 98 F Pulse Rate 96 96 Respiratory 24 30 16 Rate Blood Pressure 89/46 96/56 96/63 (mmHg) O2 Sat by Pulse 98 Oximetry 02/27/17 02/27/17 02/27/17 08:24 08:40 08:45 Temperature 99.5 F Pulse Rate 96 96 96 Respiratory 21 25 22 Rate Blood Pressure 92/43 98/63 (mmHg) O2 Sat by Pulse 99 97 98 Oximetry 02/27/17 02/27/17 02/27/17 09:00 09:08 09:15 Temperature Pulse Rate 99 99 Respiratory 18 22 12 Rate Blood Pressure 102/67 112/68 (mmHg) O2 Sat by Pulse 99 98 Oximetry 02/27/17 02/27/17 02/27/17 09:30 09:45 10:00 Temperature Pulse Rate 105 99 103 Respiratory 18 18 17 Rate Blood Pressure 108/51 101/59 99/73 (mmHg) O2 Sat by Pulse 97 99 98 Oximetry 02/27/17 02/27/17 02/27/17 10:15 10:30 10:45 Temperature Pulse Rate 104 101 102 Respiratory 17 18 24 Rate Blood Pressure 109/66 112/66 (mmHg) O2 Sat by Pulse 98 97 98 Oximetry 02/27/17 02/27/17 02/27/17 10:54 11:00 11:15 Temperature 98.8 F Pulse Rate 108 103 Respiratory 17 18 Rate Blood Pressure 91/67 101/67 (mmHg) O2 Sat by Pulse 99 97 Oximetry 02/27/17 02/27/17 02/27/17 11:30 12:00 13:00 Temperature 98.3 F Pulse Rate 101 94 90 Respiratory 16 14 17 Rate Blood Pressure 108/60 102/64 96/66 (mmHg) O2 Sat by Pulse 97 97 96 Oximetry 02/27/17 02/27/17 02/27/17 14:00 15:00 15:42 Temperature 98.4 F Pulse Rate 101 91 Respiratory 21 22 Rate Blood Pressure 99/56 96/56 (mmHg) O2 Sat by Pulse 98 97 Oximetry Oxygen Devices in Use Now: None Appearance: NAD Eyes: No Scleral Icterus, PERRLA Ears/Nose/Mouth/Throat: NL Teeth, Lips, Gums, Clear Oropharnyx, Mucous Membranes Moist Neck: NL Appearance and Movements; NL JVP, Trachea Midline Respiratory: Symmetrical Chest Expansion and Respiratory Effort, Clear to Auscultation Cardiovascular: NL Sounds; No Murmurs; No JVD, RRR Abdominal: NL Sounds; No Tenderness; No Distention, No Hepatosplenomegaly Lymphatic: No Cervical Adenopathy Extremities: No Edema Skin: No Rash or Ulcers Neurological: Alert and Oriented x 3 Result Diagrams: 02/27/17 03:31 02/27/17 03:31 Additional Lab and Data: Lab Results 02/27/17 02/27/17 02/27/17 Range/Units 03:31 03:31 03:31 WBC 11.6 H (3.5-10.8) 10^3/ul RBC 5.41 H (4.0-5.4) 10^6/ul Hgb 14.0 (12.0-16.0) g/dl Hct 43 (35-47) % MCV 79 L (80-97) fL MCH 26 L (27-31) pg MCHC 33 (31-36) g/dl RDW 15 (10.5-15) % Plt Count 116 L (150-450) 10^3/ul MPV 9 (7.4-10.4) um3 Neut % (Auto) 72.3 (38-83) % Lymph % (Auto) 13.5 L (25-47) % [place] % (Auto) 13.2 H (1-9) % Eos % (Auto) 0.7 (0-6) % Baso % (Auto) 0.3 (0-2) % Absolute Neuts (auto) 8.4 H (1.5-7.7) 10^3/ul Absolute Lymphs (auto) 1.6 (1.0-4.8) 10^3/ul Absolute Monos (auto) 1.5 H (0-0.8) 10^3/ul Absolute Eos (auto) 0.1 (0-0.6) 10^3/ul Absolute Basos (auto) 0 (0-0.2) 10^3/ul Absolute Nucleated RBC 0 10^3/ul Nucleated RBC % 0 Sodium 133 (133-145) mmol/L Potassium 3.9 (3.5-5.0) mmol/L Chloride 104 (101-111) mmol/L Carbon Dioxide 24 (22-32) mmol/L Anion Gap 5 (2-11) mmol/L BUN 15 (6-24) mg/dL Creatinine 0.84 (0.51-0.95) mg/dL Est GFR ( Amer) 112.3 (>60) Est GFR (Non-Af Amer) 87.3 (>60) BUN/Creatinine Ratio 17.9 (8-20) Glucose 121 H (70-100) mg/dL Lactic Acid 1.1 (0.5-2.0) mmol/L Calcium 8.7 (8.6-10.3) mg/dL Total Bilirubin 0.50 (0.2-1.0) mg/dL AST 32 (13-39) U/L ALT 27 (7-52) U/L Alkaline Phosphatase 63 (34-104) U/L Troponin I 1.99 H* (<0.04) ng/mL Total Protein 6.5 (6.4-8.9) g/dL Albumin 3.9 (3.2-5.2) g/dL Globulin 2.6 (2-4) g/dL Albumin/Globulin Ratio 1.5 (1-3) Assess/Plan/Problems-Billing Assessment: 21 F h/o cutaneous lupus presents with 3 days worsening chest pain - Patient Problems (1) Chest pain Priority: High Comment: appreciate rheumatology and cardiology consult rub heard by cardiology c/s with pericarditis chest pain resolved tx motrin TID and colchicine plan on stress test Tuesday (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
[2017-02-27] MEDS: Colchicine* 0.6 MG TAB PO SCH (17:59)
[2017-02-27] MEDS ORDERED: Ibuprofen TAB* 600 MG ONE (18:50)
[2017-02-27] MEDS: Ibuprofen TAB* 200 MG PO SCH (18:52)
[2017-02-28] MEDS: Ibuprofen TAB* 200 MG PO SCH ×4 (02:18→21:50)
[2017-02-28] MEDS: Omeprazole CAP* 20 MG PO SCH (05:51)
[2017-02-28] MEDS: Colchicine* 0.6 MG TAB PO SCH (08:26)
--- NOTE | 2017-02-28 13:53 | PN ---
Subjective Date of Service: 02/28/17 Interval History: SHEPARD and chest pain yesterday evening that resolved with motrin. No additional chest pain since that time. Objective Active Medications: Acetaminophen (Tylenol Tab*) 650 mg PO Q6H PRN PRN Reason: FEVER/PAIN Last Admin: 02/27/17 17:59 Dose: 650 mg Colchicine (Colcrys*) 0.6 mg PO DAILY [facility] Last Admin: 02/28/17 08:26 Dose: 0.6 mg Heparin Sodium (Porcine) (Heparin Vial(*)) 4,000 units IV ED ONCE [facility] Last Admin: 02/27/17 06:11 Dose: 4,000 units Ibuprofen (Advil Tab*) 600 mg PO TID [facility] Last Admin: 02/28/17 08:26 Dose: 600 mg Melatonin (Melatonin (Nf)) 3 mg PO BEDTIME PRN; Protocol PRN Reason: Sleep Morphine Sulfate (Morphine Inj (Syringe)*) 2 mg IV Q4H PRN PRN Reason: PAIN - MILD Omeprazole (Prilosec Cap*) 20 mg PO DAILY@0600 [facility] Last Admin: 02/28/17 05:51 Dose: 20 mg Ondansetron HCl (Zofran Inj*) 4 mg IV Q6H PRN PRN Reason: NAUSEA Vital Signs 02/27/17 02/27/17 02/27/17 14:00 15:00 15:42 Temperature 98.4 F Pulse Rate 101 91 Respiratory 21 22 Rate Blood Pressure 99/56 96/56 (mmHg) O2 Sat by Pulse 98 97 Oximetry 02/27/17 02/27/17 02/27/17 16:00 17:00 18:00 Temperature Pulse Rate 88 87 106 Respiratory 26 18 17 Rate Blood Pressure 87/57 95/50 98/61 (mmHg) O2 Sat by Pulse 96 99 100 Oximetry 02/27/17 02/27/17 02/27/17 19:00 20:00 21:00 Temperature 99.0 F Pulse Rate 106 103 100 Respiratory 15 16 24 Rate Blood Pressure 108/62 92/49 100/57 (mmHg) O2 Sat by Pulse 98 97 97 Oximetry 02/27/17 02/27/17 02/28/17 22:00 23:00 00:00 Temperature Pulse Rate 101 92 86 Respiratory 22 22 11 Rate Blood Pressure 95/51 94/58 (mmHg) O2 Sat by Pulse 98 96 98 Oximetry 06/26/17 06/26/17 06/26/17 00:01 00:06 01:00 Temperature Pulse Rate 80 81 83 Respiratory 14 20 21 Rate Blood Pressure 95/63 100/56 (mmHg) O2 Sat by Pulse 99 97 96 Oximetry 02/28/17 02/28/17 02/28/17 02:00 03:00 04:00 Temperature 97.6 F Pulse Rate 80 83 81 Respiratory 24 24 22 Rate Blood Pressure 95/43 87/53 93/48 (mmHg) O2 Sat by Pulse 97 97 98 Oximetry 02/28/17 02/28/17 02/28/17 05:00 06:00 07:00 Temperature Pulse Rate 75 87 89 Respiratory 23 13 19 Rate Blood Pressure 92/63 103/59 96/59 (mmHg) O2 Sat by Pulse 97 98 97 Oximetry 02/28/17 02/28/17 02/28/17 07:48 07:54 08:00 Temperature 97.7 F Pulse Rate 89 Respiratory 18 Rate Blood Pressure 102/62 (mmHg) O2 Sat by Pulse 97 98 Oximetry 02/28/17 02/28/17 09:00 09:59 Temperature 98.7 F Pulse Rate 88 86 Respiratory 15 14 Rate Blood Pressure 93/61 94/62 (mmHg) O2 Sat by Pulse 97 100 Oximetry Oxygen Devices in Use Now: None Appearance: interactive, NAD Eyes: No Scleral Icterus, PERRLA Ears/Nose/Mouth/Throat: NL Teeth, Lips, Gums, Clear Oropharnyx, Mucous Membranes Moist Neck: NL Appearance and Movements; NL JVP, Trachea Midline Respiratory: Symmetrical Chest Expansion and Respiratory Effort, Clear to Auscultation Cardiovascular: NL Sounds; No Murmurs; No JVD, RRR Abdominal: NL Sounds; No Tenderness; No Distention, No Hepatosplenomegaly Lymphatic: No Cervical Adenopathy Extremities: No Edema Skin: No Rash or Ulcers Neurological: Alert and Oriented x 3 Result Diagrams: 02/27/17 03:31 02/27/17 03:31 Additional Lab and Data: Lab Results 02/27/17 02/27/17 02/27/17 Range/Units 03:31 03:31 03:31 WBC 11.6 H (3.5-10.8) 10^3/ul RBC 5.41 H (4.0-5.4) 10^6/ul Hgb 14.0 (12.0-16.0) g/dl Hct 43 (35-47) % MCV 79 L (80-97) fL MCH 26 L (27-31) pg MCHC 33 (31-36) g/dl RDW 15 (10.5-15) % Plt Count 116 L (150-450) 10^3/ul MPV 9 (7.4-10.4) um3 Neut % (Auto) 72.3 (38-83) % Lymph % (Auto) 13.5 L (25-47) % [place] % (Auto) 13.2 H (1-9) % Eos % (Auto) 0.7 (0-6) % Baso % (Auto) 0.3 (0-2) % Absolute Neuts (auto) 8.4 H (1.5-7.7) 10^3/ul Absolute Lymphs (auto) 1.6 (1.0-4.8) 10^3/ul Absolute Monos (auto) 1.5 H (0-0.8) 10^3/ul Absolute Eos (auto) 0.1 (0-0.6) 10^3/ul Absolute Basos (auto) 0 (0-0.2) 10^3/ul Absolute Nucleated RBC 0 10^3/ul Nucleated RBC % 0 Sodium 133 (133-145) mmol/L Potassium 3.9 (3.5-5.0) mmol/L Chloride 104 (101-111) mmol/L Carbon Dioxide 24 (22-32) mmol/L Anion Gap 5 (2-11) mmol/L BUN 15 (6-24) mg/dL Creatinine 0.84 (0.51-0.95) mg/dL Est GFR ( Amer) 112.3 (>60) Est GFR (Non-Af Amer) 87.3 (>60) BUN/Creatinine Ratio 17.9 (8-20) Glucose 121 H (70-100) mg/dL Lactic Acid 1.1 (0.5-2.0) mmol/L Calcium 8.7 (8.6-10.3) mg/dL Total Bilirubin 0.50 (0.2-1.0) mg/dL AST 32 (13-39) U/L ALT 27 (7-52) U/L Alkaline Phosphatase 63 (34-104) U/L Troponin I 1.99 H* (<0.04) ng/mL Total Protein 6.5 (6.4-8.9) g/dL Albumin 3.9 (3.2-5.2) g/dL Globulin 2.6 (2-4) g/dL Albumin/Globulin Ratio 1.5 (1-3) Microbiology and Other Data: Microbiology 02/27/17 12:32 Nasal Screen MRSA (PCR)(DAKSHA) - Final Nasal Mrsa Negative Assess/Plan/Problems-Billing Assessment: 21 F h/o cutaneous lupus presents with 3 days worsening chest pain - Patient Problems (1) Chest pain Priority: High Comment: appreciate rheumatology and cardiology consult rub heard by cardiology c/s with myopericarditis - no effusion on TTE chest pain resolved tx motrin TID and colchicine plan on stress test Tuesday (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
--- NOTE | 2017-02-28 18:31 | PN ---
Subjective - Subjective History: Date of service 02/28/2017 Rheumatology follow up note. Chief complain: myopericarditis. Overall Ms. Alcazar feels well today. She has had no recurrence of her chest wall pain. She denied shortness of breath. Her appetite is good and she denied joint pain and no new rash. Active Problems: Active Problems Acute myopericarditis (Acute) I30.9 troponin peaked motrin and colchicine as above TTE without effusion Chest pain (Acute) R07.9 appreciate rheumatology and cardiology consult rub heard by cardiology c/s with myopericarditis - no effusion on TTE chest pain resolved tx motrin TID and colchicine plan on stress test Tuesday Cutaneous lupus erythematosus (Acute) L93.2 topical triamcinolone for flares lab testing pending to evaluate for SLE DVT prophylaxis (Acute) [id number] low risk, ambulate ad long Current Medications: Current Medications Acetaminophen (Tylenol Tab*) 650 mg PO Q6H PRN PRN Reason: FEVER/PAIN Last Admin: 02/27/17 17:59 Dose: 650 mg Colchicine (Colcrys*) 0.6 mg PO DAILY [facility] Last Admin: 02/28/17 08:26 Dose: 0.6 mg Heparin Sodium (Porcine) (Heparin Vial(*)) 4,000 units IV ED ONCE [facility] Last Admin: 02/27/17 06:11 Dose: 4,000 units Ibuprofen (Advil Tab*) 600 mg PO TID [facility] Last Admin: 02/28/17 15:00 Dose: 600 mg Melatonin (Melatonin (Nf)) 3 mg PO BEDTIME PRN; Protocol PRN Reason: Sleep Morphine Sulfate (Morphine Inj (Syringe)*) 2 mg IV Q4H PRN PRN Reason: PAIN - MILD Omeprazole (Prilosec Cap*) 20 mg PO DAILY@0600 [facility] Last Admin: 02/28/17 05:51 Dose: 20 mg Ondansetron HCl (Zofran Inj*) 4 mg IV Q6H PRN PRN Reason: NAUSEA - Review of Systems Constitutional Symptoms: No: Weight Gain, Weight Loss, Weakness, Unexplained Falls Dermatology: Normal: No, Skin Lesions: No HEENT: No Normal Eyes: Positive: Normal Thyroid: Positive: Normal Pulmonary: Positive: Normal Cardiology: Positive: Normal Gastroenterology: Positive: Normal Endocrinology: Positive: Normal Neurology: Positive: Normal Psychiatry: Positive: Normal Home Medications: Home Medications Medication Instructions Recorded Confirmed Type NK [No Home Medications Reported] 02/27/17 02/27/17 History Allergies: Allergies Allergy/AdvReac Type Severity Reaction Status Date / Time Bacitracin [From Neosporin] Allergy Intermediate Blisters Verified 02/27/17 03: 25 Neomycin [From Neosporin] Allergy Intermediate Blisters Verified 02/27/17 03:25 Polymyxin B [From Neosporin] Allergy Intermediate Blisters Verified 02/27/17 03: 25 Objective - Vital Signs Vital Signs: Vital Signs 02/27/17 02/27/17 02/27/17 19:00 20:00 21:00 Temperature 99.0 F Pulse Rate 106 103 100 Respiratory 15 16 24 Rate Blood Pressure 108/62 92/49 100/57 (mmHg) O2 Sat by Pulse 98 97 97 Oximetry 02/27/17 02/27/17 02/28/17 22:00 23:00 00:00 Temperature Pulse Rate 101 92 86 Respiratory 22 22 11 Rate Blood Pressure 95/51 94/58 (mmHg) O2 Sat by Pulse 98 96 98 Oximetry 02/28/17 02/28/17 02/28/17 00:01 00:06 01:00 Temperature Pulse Rate 80 81 83 Respiratory 14 20 21 Rate Blood Pressure 95/63 100/56 (mmHg) O2 Sat by Pulse 99 97 96 Oximetry 02/28/17 02/28/17 02/28/17 02:00 03:00 04:00 Temperature 97.6 F Pulse Rate 80 83 81 Respiratory 24 24 22 Rate Blood Pressure 95/43 87/53 93/48 (mmHg) O2 Sat by Pulse 97 97 98 Oximetry 02/28/17 02/28/17 02/28/17 05:00 06:00 07:00 Temperature Pulse Rate 75 87 89 Respiratory 23 13 19 Rate Blood Pressure 92/63 103/59 96/59 (mmHg) O2 Sat by Pulse 97 98 97 Oximetry 02/28/17 02/28/17 02/28/17 07:48 07:54 08:00 Temperature 97.7 F Pulse Rate 89 Respiratory 18 Rate Blood Pressure 102/62 (mmHg) O2 Sat by Pulse 97 98 Oximetry 02/28/17 02/28/17 09:00 09:59 Temperature 98.7 F Pulse Rate 88 86 Respiratory 15 14 Rate Blood Pressure 93/61 94/62 (mmHg) O2 Sat by Pulse 97 100 Oximetry - Intake and Output Intake and Output: Intake & Output 02/26/17 02/27/17 02/28/17 03/01/17 06:59 06:59 06:59 06:59 Intake Total 1985 200 Output Total 1300 0 Balance 685 200 Weight 162 lb 4.163 oz 162 lb 4.163 oz Intake: IV Fluids 525 NS 525 Oral 1460 200 Output: Urine 1300 0 Other: Estimated Void Medium # Bowel Movements 0 # Voids 3 2 ADLs: Meal Record Start: 02/27/17 07: 29 Freq: 09,13,18 Status: Inactive Created 02/27/17 07:29 System (Rec: 02/27/17 07:29 System ICU-C24) Document 02/27/17 09:08 [id number] (Rec: 02/27/17 09:08 [id number] ICU-C16) Document 02/27/17 13:00 [id number] (Rec: 02/27/17 13:02 [id number] ICU-C16) Document 02/27/17 18:00 [id number] (Rec: 02/27/17 20:11 [id number] ICU-C12) ADLs: Meal Record Start: 02/28/17 10: 50 Freq: DAILY@0900,1400,1800 Status: Active Created 02/28/17 10:50 [id number] (Rec: 02/28/17 10:50 [id number] TELE-C02) Document 02/28/17 14:00 [id number] (Rec: 02/28/17 15:09 [id number] TELE-C01) Intake and Output Start: 02/27/17 03: 25 Freq: Status: Active Created 02/27/17 03:25 System (Rec: 02/27/17 03:25 System ED-C24) Intake and Output Start: 02/27/17 07: 29 Freq: 06,14,22 Status: Inactive Created 02/27/17 07:29 System (Rec: 02/27/17 07:29 System ICU-C24) Document 02/27/17 11:23 [id number] (Rec: 02/27/17 11:23 [id number] ICU-C16) Document 02/27/17 11:39 [id number] (Rec: 02/27/17 11:40 [id number] ICU-C16) Document 02/27/17 14:00 [id number] (Rec: 02/27/17 15:42 [id number] ICU-C16) Document 02/27/17 18:14 [id number] (Rec: 02/27/17 18:14 [id number] ICU-C10) Document 02/27/17 22:00 [id number] (Rec: 02/28/17 00:06 [id number] ICU-C12) Document 02/28/17 06:00 [id number] (Rec: 02/28/17 06:05 [id number] ICU-C12) Intake and Output Start: 02/28/17 10: 50 Freq: DAILY@0600,1400,2200 Status: Active Created 02/28/17 10:50 [id number] (Rec: 02/28/17 10:50 [id number] TELE-C02) Document 02/28/17 14:00 [id number] (Rec: 02/28/17 15:09 [id number] TELE-C01) - Physical Exam Eye Exam: bilateral: PERRLA, Normal Fundi, EOMI Head: Yes Normocephalic Throat/Oropharyx Exam: Bilateral: Normal Thyroid Function: Clinically Euthyroid Lungs and Chest: Yes: Chest Expansion Full, Chest Expansion Symetrica, Percussion Note Resonant Heart Rate and Rhythm: Regular JVP: Not Elevated [place] Beat: Non Displaced Additional Cardiovascular: Yes: [place] Beat not Displaced, Normal Heart Sounds Abdominal Exam: Yes: Soft - Rheumotological System Joints: Range of Motion - Extremities Posterior Tibial Pulse: Bilateral Normal Dorsalis Pedis Pulses: Bilateral Normal Hematology: No Supraclavicular Adenopathy Limbs: Normal Power, Normal Tone - Neuro Orientation: A/O x3 Psychiatric: Normal Speech: Normal Assessment - Problem List Assessment: Patient Problems Acute myopericarditis (Acute) Chest pain (Acute) Cutaneous lupus erythematosus (Acute) DVT prophylaxis (Acute) Plan: Overall Ms. Alcazar is doing well and is clinically asymptomatic on NSAID therapy and Colchicine. 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 Continue present supportive care.
[2017-03-01] MEDS: Omeprazole CAP* 20 MG PO SCH (06:15)
[2017-03-01 06:52] LABS: Blood Urea Nitrogen 18 mg/dL (6-24); CO2 Carbon Dioxide 22 mmol/L (22-32); Calcium 9.1 mg/dL (8.6-10.3); Chloride 110 mmol/L (101-111); EGFR African American 115.5 (>60); EGFR Non-African American 89.8 (>60); Glucose 98 mg/dL (70-100); Sodium 136 mmol/L (133-145)
[2017-03-01 07:43] LABS: Anion Gap 4 mmol/L (2-11)
--- NOTE | 2017-03-01 10:12 | RAD ---
HISTORY: Rule out coronary artery disease, chest pain COMPARISONS: None TECHNIQUE: A 1 day stress/rest myocardial perfusion study was performed, with pharmacologic stress. The exercise portion was performed using the Shlomo protocol, for a total METs of 7. The stress portion was monitored by Dr. Causey. Gated SPECT imaging was performed, with CT-based attenuation correction DOSE: Stress: Technetium 99m tetrofosmin, 25.81 millicuries, injected at 9:16 AM on March 01, 2017 Rest: Technetium 99m tetrofosmin, 10.49 millicuries, injected at 6:25 AM on March 01, 2017 Pharmacologic agent: None FINDINGS: CARDIAC MONITORING: Peak heart rate of 160 bpm, 99% of predicted EF: 72 % TID: 1.09 MOTION: Normal motion, with normal wall thickening. PERFUSION: There is a small focus of reversible hypoperfusion along the distal septum towards the apex OTHER: None IMPRESSION: SMALL FOCUS OF REVERSIBLE HYPOPERFUSION OF THE DISTAL SEPTUM TOWARDS THE APEX ASSESSMENT: LOW RISK. Based on imaging criteria from ACC/AHA 2002. Guideline Update for the Management of Patient's with Chronic Stable Angina, table 23. Noninvasive Risk Stratification.
[2017-03-01] MEDS: Colchicine* 0.6 MG TAB PO SCH (11:07)
[2017-03-01] MEDS: Ibuprofen TAB* 200 MG PO SCH (11:07)
[2017-03-01 13:00] LABS: SS-B/La Antibody <0.2 U; Sm (Smith) IgG Antibody <0.2 U; U1-nRNP Antibody 0.2 U
[2017-03-01 14:04] LABS: LAC APTT 28 sec (26 - 36); LAC INR 1.2; Lac DRVVT Screen Ratio 0.9 ratio (0.0 - 1.1); Prothrombin Time(LAC) 12.8 sec
[2017-03-01 14:11] VITALS: BP 102/53
[2017-03-01 17:38] LABS: Phospholipid Ab IgG < 9.4 GPL; Phospholipid Ab IgM, S < 9.4 MPL
[2017-03-01 20:24] LABS: Complement C3 120 mg/dL (75 - 175)
--- NOTE | 2017-03-02 16:20 | DS ---
CC: Dr. Byrnes; Dr. Harmon * DISCHARGE SUMMARY: DATE OF ADMISSION: 02/27/17 DATE OF DISCHARGE: 03/01/17 PRIMARY CARE PHYSICIAN: Dr. Byrnes. PRIMARY DIAGNOSIS: Myopericarditis. MEDICATIONS ON DISCHARGE: 1. Colchicine 0.6 mg daily for 45 days. 2. Ibuprofen 600 mg 3 times daily for 45 days. 3. Omeprazole 20 mg daily for 45 days. PERTINENT LABORATORY DATA: ESR 10. CRP 14, increased at 19 on the day of admission. Troponin-I peaked at 3.32. PERTINENT IMAGING: Exercise stress with nuclear imaging: Low risk. Impression : Small focus of reversible hypoperfusion with the distal septum towards the apex. Results were discussed with Dr. Gallardo. CTA chest and thorax. Impression: No evidence of pulmonary embolism. Echocardiogram. Impression: Normal left ventricular systolic function. Estimated EF 55% to 60%. Global left ventricular wall motion and contractility are within normal limits. Left ventricular chamber size is normal. Normal cardiac chamber size and functionally benign heart valves. No significant pericardial effusion. CONSULTATIONS DURING THE HOSPITAL STAY: Cardiology and Rheumatology. HISTORY OF PRESENT ILLNESS AND HOSPITAL COURSE: This is a 21-year-old female with a past medical history of cutaneous lupus who had been in her usual state health until several days prior to presentation, started to develop worsening chest pain. She presented to the hospital. She was found to have an elevated troponin and EKG changes. In the emergency room, she was given aspirin, metoprolol, heparin and ticagrelor. She was consulted by the corrections identification technician who deemed that she did not need cardiac catheterization. She was followed by cardiology consult, suspected she had myopericarditis consistent with a pericardial rub that he heard on exam. Anti-platelet agents were stopped and the patient was started on colchicine, NSAIDs and a proton pump inhibitor. Her pain resolved throughout the course of the hospital stay. She was seen in conjunction with Dr. Harmon and there are numerous tests pending at the time of her discharge including extractable nuclear antigen panel. At followup, please; 1. Evaluate for continued resolution of symptoms. 2. Consider trending CRP and ESR, resolution for inflammatory markers. 3. Make sure the patient follows up with Dr. Harmon for evaluation and interpretation of labs to evaluate for transition from cutaneous to systemic lupus. 4. No other specific labs or vitals that need followup. Reasons to return to the hospital included, but not limited to recurrent or worsening symptoms including chest pain, shortness of breath, nausea, vomiting, lightheadedness, fevers, chills, night sweats, lightheadedness, bleeding from any source, inability to obtain or tolerate medications discussed with the patient, her mother and her father and they acknowledged understanding. TIME SPENT: Greater than 60 minutes was spent on the discharge of this patient ; greater than half was spent [id number] with the patient and her family. [id number]/[facility] #: [id number] FRANCISCA
== END 2017-03-01 15:45 | disposition home or self-care (01) | DRG 207 ==
LOC: ED 03:16 → ICU 07:11 → MEDTELE 02-28 08:38
PROVIDERS: ADMIT Hospitalist; ATTEND Internal Medicine
DX: I31.9 Disease of pericardium, unspecified (principal); N20.9 Urinary calculus, unspecified; L93.1 Subacute cutaneous lupus erythematosus; R74.8 Abnormal levels of other serum enzymes; R07.9 Chest pain, unspecified; Z79.899 Other long term (current) drug therapy; Z88.1 Allergy status to other antibiotic agents; Z88.8 Allergy status to other drugs, medicaments and biological substances; Z82.49 Family history of ischemic heart disease and other diseases of the circulatory system; Z83.3 Family history of diabetes mellitus; Z80.8 Family history of malignant neoplasm of other organs or systems
CPT/HCPCS: 36415; 71020; 71275; 78452; 80048; 80053; 80307; 81003; 81015; 82550; 82553; 83605; 84484; 84702; 85025; 85379; 85610; 85613; 85652; 85730; 86039; 86140; 86147; 86160; 86162; 86225; 86235; 86644; 86645; 87086; 87641; 93005; 93017; 93306; 94760; A9270-GY; A9502; J1644; J1885

== ENCOUNTER 2017-03-07 20:26 | Emergency (ER) | payer BC ==
[2017-03-07 23:01] LABS: Hematocrit 42 % (35-47); Hemoglobin 13.8 g/dl (12.0-16.0); Mean Corpuscular HGB Conc 33 g/dl (31-36); Mean Corpuscular Hemoglobin 27 pg (27-31); Mean Corpuscular Volume 82 fL (80-97); Mean Platelet Volume 8 um3 (7.4-10.4); Red Blood Count 5.12 10^6/ul (4.0-5.4); Red Cell Distribution Width 15 % (10.5-15); White Blood Count 9.1 10^3/ul (3.5-10.8)
[2017-03-07 23:17] LABS: Albumin 3.9 g/dL (3.2-5.2); BUN/Creatinine Ratio 17.7 (8-20); EGFR African American 96.3 (>60); EGFR Non-African American 74.9 (>60); Globulin 2.8 g/dL (2-4); Magnesium 2.3 mg/dL (1.9-2.7); Potassium 3.5 mmol/L (3.5-5.0); Total Bilirubin 0.5 mg/dL (0.2-1.0); Total Protein 6.7 g/dL (6.4-8.9)
[2017-03-07] MEDS ORDERED: Ketorolac INJ* 30 MG/ML 1 ML VIAL IV PUSH ONE (23:28)
--- NOTE | 2017-03-07 23:28 | ED ---
I, Jed,Cristal, scribed for Tomas Smith MD on 03/07/17 at 2213 . HPI Chest Pain - HPI Summary HPI Summary: This 21 y/o female presents to ED for acute left lateral CP since today AM. Pain is worse with deep breath. She was recently admitted and discharged 4 days ago with dx of myocarditis. Pt states CP has been improved and minimal until pt was evaluated by real estate operations manager today AM, after which CP returned. Other PMHx includes lupus, anxiety, and kidney stones. - History of Current Complaint Chief Complaint: EDChestWallPain Time Seen by Provider: 03/07/17 22:05 Hx Obtained From: Patient, Medical Records Onset/Duration: Started Hours Ago, Atraumatic, Still Present Timing: Constant Pain Intensity: 1 Pain Scale Used: 0-10 Numeric Chest Pain Location: Diffuse Chest Pain Radiates: No Character: Dull/Aching Aggravating Factor(s): Deep Breaths Alleviating Factor(s): Nothing Associated Signs and Symptoms: Positive: Chest Pain. Negative: Shortness of Breath - Additional Pertinent History Primary Care Physician: [id number] - Allergy/Home Medications Allergies/Adverse Reactions: Allergies Allergy/AdvReac Type Severity Reaction Status Date / Time Bacitracin [From Neosporin] Allergy Intermediate Blisters Verified 02/27/17 03: 25 Neomycin [From Neosporin] Allergy Intermediate Blisters Verified 02/27/17 03:25 Polymyxin B [From Neosporin] Allergy Intermediate Blisters Verified 02/27/17 03: 25 PMH/Surg Hx/FS Hx/Imm Hx Endocrine/Hematology History: Reports: Other Endocrine/Hematological Disorders - Lupus Denies: Hx Diabetes, Hx Systemic Lupus Erythematosus Cardiovascular History: Reports: Hx Angina, Hx Hypotension Denies: Hx Coronary Artery Disease, Hx Hypercholesterolemia, Hx Hypertension , Hx Myocardial Infarction, Hx Valvular Heart Disease Respiratory History: Reports: Hx Pneumonia Denies: Hx Asthma, Hx Chronic Obstructive Pulmonary Disease (COPD) History: Reports: Hx Kidney Stones Denies: Hx Renal Disease Sensory History: Reports: Hx Contacts or Glasses Denies: Hx Legally Blind, Hx Deafness, Hx Hearing Aid Opthamlomology History: Reports: Hx Contacts or Glasses Denies: Hx Legally Blind Neurological History: Reports: Hx Headaches Psychiatric History: Reports: Hx Anxiety - Surgical History Surgery Procedure, Year, and Place: T&A 1999 Infectious Disease History: No Infectious Disease History: Denies: Traveled Outside the [place] in Last 30 Days - Family History Known Family History: Positive: Other - Cancers - Social History Alcohol Use: Occasionally Substance Use Type: Reports: None Hx Tobacco Use: No Smoking Status (MU): Never Smoked Tobacco Have You Smoked in the Last Year: No Review of Systems Negative: Fever Positive: Chest Pain Negative: Shortness Of Breath All Other Systems Reviewed And Are Negative: Yes Physical Exam Triage Information Reviewed: Yes Vital Signs On Initial Exam: Initial Vitals Temp Pulse Resp BP Pulse Ox 98.0 F 95 16 117/61 97 03/07/17 20:29 03/07/17 20:29 03/07/17 20:29 03/07/17 20:29 03/07/17 20:29 Vital Signs Reviewed: Yes Appearance: Positive: Well-Appearing, No Pain Distress - discomfort Skin: Positive: Warm Head/Face: Positive: Normal Head/Face Inspection Eyes: Positive: GERALD ENT: Positive: Hearing grossly normal Neck: Positive: Supple Respiratory/Lung Sounds: Positive: Clear to Auscultation, Breath Sounds Present Cardiovascular: Positive: RRR. Negative: Murmur Abdomen Description: Positive: Nontender, Soft Bowel Sounds: Positive: Present Musculoskeletal: Positive: Strength/ROM Intact Neurological: Positive: Alert, Oriented to Person Place, Time Psychiatric: Positive: Affect/Mood Appropriate Diagnostics - Vital Signs Vital Signs Temp Pulse Resp BP Pulse Ox 03/07/17 21:40 89 16 98 03/07/17 21:38 114/54 03/07/17 20:29 98.0 F 95 16 117/61 97 - Laboratory Lab Results: Lab Results 03/07/17 03/07/17 03/07/17 Range/Units 22:45 22:45 22:45 WBC 9.1 (3.5-10.8) 10^3/ul RBC 5.12 (4.0-5.4) 10^6/ul Hgb 13.8 (12.0-16.0) g/dl Hct 42 (35-47) % MCV 82 (80-97) fL MCH 27 (27-31) pg MCHC 33 (31-36) g/dl RDW 15 (10.5-15) % Plt Count 185 (150-450) 10^3/ul MPV 8 (7.4-10.4) um3 Neut % (Auto) 33.6 L (38-83) % Lymph % (Auto) 51.0 H (25-47) % [place] % (Auto) 13.2 H (1-9) % Eos % (Auto) 1.9 (0-6) % Baso % (Auto) 0.3 (0-2) % Absolute Neuts (auto) 3.1 (1.5-7.7) 10^3/ul Absolute Lymphs (auto) 4.6 (1.0-4.8) 10^3/ul Absolute Monos (auto) 1.2 H (0-0.8) 10^3/ul Absolute Eos (auto) 0.2 (0-0.6) 10^3/ul Absolute Basos (auto) 0 (0-0.2) 10^3/ul Absolute Nucleated RBC 0.03 10^3/ul Nucleated RBC % 0.3 D-Dimer, Quantitative 437 H (Less Than 230) ng/mL Sodium 137 (133-145) mmol/L Potassium 3.5 (3.5-5.0) mmol/L Chloride 105 (101-111) mmol/L Carbon Dioxide 25 (22-32) mmol/L Anion Gap 7 (2-11) mmol/L BUN 17 (6-24) mg/dL Creatinine 0.96 H (0.51-0.95) mg/dL Est GFR ( Amer) 96.3 (>60) Est GFR (Non-Af Amer) 74.9 (>60) BUN/Creatinine Ratio 17.7 (8-20) Glucose 92 (70-100) mg/dL Calcium 9.0 (8.6-10.3) mg/dL Magnesium 2.3 (1.9-2.7) mg/dL Total Bilirubin 0.50 (0.2-1.0) mg/dL AST 39 (13-39) U/L ALT 57 H (7-52) U/L Alkaline Phosphatase 68 (34-104) U/L Total Creatine Kinase 45 (10-223) U/L CK-MB (CK-2) 0.9 (0.6-6.3) ng/mL Troponin I 0.00 (<0.04) ng/mL Total Protein 6.7 (6.4-8.9) g/dL Albumin 3.9 (3.2-5.2) g/dL Globulin 2.8 (2-4) g/dL Albumin/Globulin Ratio 1.4 (1-3) Result Diagrams: 03/07/17 22:45 03/07/17 22:45 Lab Statement: Any lab studies that have been ordered have been reviewed, and results considered in the medical decision making process. - Radiology CXR Radiology Interpretation Completed By: ED Physician - EKG 2217 Cardiac Rate: NL - 86 bpm EKG Rhythm: Sinus Rhythm Re-Evaluation - Re-Evaluation First Eval Change: Improved - results d/w pt Chest Pain Course/Dx - Diagnoses Provider Diagnoses: Pleurisy Discharge - Discharge Plan Condition: Stable Disposition: HOME Patient Education Materials: Pleurisy (ED) Referrals: Britt Byrnes MD [Primary Care Provider] - 2 Days Additional Instructions: Return to ED if your chest pain returns or worsens. Otherwise, be sure to follow up with your primary care provider in 2 days. The documentation as recorded by the Jed woodruff Soohyun accurately reflects the service I personally performed and the decisions made by Sarah diehl David, MD.
[2017-03-08 00:24] VITALS: BP 101/55
--- NOTE | 2017-03-08 08:49 | RAD ---
Indication: Chest pain. 2 views of the chest including dual energy PA views demonstrate no mediastinal shift. Heart is of normal size and configuration. Lung fajardo are clear. IMPRESSION: No active cardiopulmonary disease is noted.
[2017-03-11 17:47] LABS: Lyme Disease IgG Ab WB Negative (Negative)
== END 2017-03-08 00:45 | disposition home or self-care (01) ==
LOC: ED 20:26
DX: R09.1 Pleurisy (principal); R07.9 Chest pain, unspecified
CPT/HCPCS: 36415; 71020; 80053; 82550; 82553; 83605; 83735; 84484; 85025; 85379; 86617; 93005; 96374; 99283; J1885

== ENCOUNTER 2017-06-01 23:42 | Emergency (ER) | payer BC ==
[2017-06-02 02:12] LABS: Urine Bilirubin Negative (Negative); Urine Glucose Negative (Negative); Urine Nitrite Negative (Negative)
[2017-06-02 03:09] LABS: Hematocrit 42 % (35-47); Hemoglobin 14.3 g/dl (12.0-16.0); Mean Corpuscular HGB Conc 34 g/dl (31-36); Mean Corpuscular Hemoglobin 27 pg (27-31); Mean Corpuscular Volume 80 fL (80-97); Mean Platelet Volume 9 um3 (7.4-10.4); Red Blood Count 5.32 10^6/ul (4.0-5.4); Red Cell Distribution Width 15 % (10.5-15); White Blood Count 12.9 10^3/ul (3.5-10.8)
[2017-06-02 03:25] LABS: ALT 10 U/L (7-52); AST 14 U/L (13-39); Albumin 4.5 g/dL (3.2-5.2); Alkaline Phosphatase 57 U/L (34-104); Anion Gap 5 mmol/L (2-11); BUN/Creatinine Ratio 18.3 (8-20); Blood Urea Nitrogen 19 mg/dL (6-24); C Reactive Protein < 1.00 mg/L (< 5.00); CO2 Carbon Dioxide 26 mmol/L (22-32); Calcium 9.3 mg/dL (8.6-10.3); Chloride 106 mmol/L (101-111); EGFR African American 86.9 (>60); EGFR Non-African American 67.6 (>60); Globulin 2.5 g/dL (2-4); Glucose 98 mg/dL (70-100); Lipase 39 U/L (11.0-82.0); Potassium 3.7 mmol/L (3.5-5.0); Sodium 137 mmol/L (133-145)
--- NOTE | 2017-06-02 04:25 | ED ---
Marcin Simon Alfonso, scribed for Tootie Kaplan MD on 06/02/17 at 0230 . Abdominal Pain/Female - HPI Summary HPI Summary: This patient is a 22 year old F presenting to [facility] accompanied by mother with a chief complaint of sharp lower pelvic pain which radiates to her left low back since yesterday. The patient rates the pain 0/10 in severity. Symptoms aggravated by nothing. Symptoms alleviated by nothing. Patient reports vaginal discharge (brown and resolved a few weeks ago). Patient denies dysuria. IUD inserted 6 months ago. LMP in December. She lives with her boyfriend. She denies abdominal PSHx. PMHx includes pericarditis. - History of Current Complaint Chief Complaint: EDOBProblems Stated Complaint: PELVIC PAIN, Time Seen by Provider: 06/02/17 01:27 Hx Obtained From: Patient Hx Last Menstrual Period: December 2016 Onset/Duration: Sudden Onset, Lasting Days, Still Present Timing: Constant Severity Currently: Mild Pain Intensity: 0 Pain Scale Used: 0-10 Numeric Location: Other - lower pelvic Radiates: Yes Radiates to: Back - left low Character: Sharp Aggravating Factor(s): Nothing Alleviating Factor(s): Nothing Associated Signs and Symptoms: Positive: Other: - vaginal discharge (brown and resolved a few weeks ago). Patient denies dysuria Allergies/Adverse Reactions: Allergies Allergy/AdvReac Type Severity Reaction Status Date / Time Bacitracin [From Neosporin] Allergy Intermediate Blisters Verified 06/01/17 23: 58 Neomycin [From Neosporin] Allergy Intermediate Blisters Verified 06/01/17 23:58 Polymyxin B [From Neosporin] Allergy Intermediate Blisters Verified 06/01/17 23: 58 PMH/Surg Hx/FS Hx/Imm Hx Endocrine/Hematology History: Reports: Other Endocrine/Hematological Disorders - Lupus Denies: Hx Diabetes, Hx Systemic Lupus Erythematosus Cardiovascular History: Reports: Hx Angina, Hx Hypotension, Other Cardiovascular Problems/Disorders - pericarditis Denies: Hx Coronary Artery Disease, Hx Hypercholesterolemia, Hx Hypertension , Hx Myocardial Infarction, Hx Valvular Heart Disease Respiratory History: Reports: Hx Pneumonia Denies: Hx Asthma, Hx Chronic Obstructive Pulmonary Disease (COPD) History: Reports: Hx Kidney Stones Denies: Hx Renal Disease Sensory History: Reports: Hx Contacts or Glasses Denies: Hx Legally Blind, Hx Deafness, Hx Hearing Aid Opthamlomology History: Reports: Hx Contacts or Glasses Denies: Hx Legally Blind Neurological History: Reports: Hx Headaches Psychiatric History: Reports: Hx Anxiety - Surgical History Surgery Procedure, Year, and Place: T&A 1999 Infectious Disease History: No Infectious Disease History: Denies: Traveled Outside the [place] in Last 30 Days - Family History Known Family History: Positive: Diabetes, Other - Cancers - Social History Alcohol Use: Occasionally Substance Use Type: Reports: None Hx Tobacco Use: No Smoking Status (MU): Never Smoked Tobacco Have You Smoked in the Last Year: No Review of Systems Negative: Fever Positive: Abdominal Pain Positive: other - vaginal discharge (brown and resolved a few weeks ago). Negative: dysuria All Other Systems Reviewed And Are Negative: Yes Physical Exam - Summary Physical Exam Summary: General: Well appearing, no pain distress Skin: Warm, Skin Color Reflects Adequate Perfusion, Dry Eyes: EOMI, GERALD ENT: Pharynx normal, TMs normal Neck: Supple, nontender Respiratory: CTA, breath sounds present, no rhonchi, no wheezes, no rales Cardiovascular: RRR, no murmur, no rub, no gallop Abdomen: Soft, nontender, Non-distended, no guarding, no rebound Bowel: Present Musculoskeletal: MICHELLE, No edema Neuro: Sensory/motor intact, A&Ox3, CN intact 2-12 Psych: Affect/mood appropriate Triage Information Reviewed: Yes Vital Signs On Initial Exam: Initial Vitals Temp Pulse Resp BP Pulse Ox 98.8 F 93 18 126/77 100 06/01/17 23:52 06/01/17 23:52 06/01/17 23:52 06/01/17 23:52 06/01/17 23:52 Vital Signs Reviewed: Yes Diagnostics - Vital Signs Vital Signs Temp Pulse Resp BP Pulse Ox 06/01/17 23:52 98.8 F 93 18 126/77 100 - Laboratory Lab Results: Lab Results 06/02/17 06/02/17 06/02/17 Range/Units 02:00 02:55 02:55 WBC 12.9 H (3.5-10.8) 10^3/ul RBC 5.32 (4.0-5.4) 10^6/ul Hgb 14.3 (12.0-16.0) g/dl Hct 42 (35-47) % MCV 80 (80-97) fL MCH 27 (27-31) pg MCHC 34 (31-36) g/dl RDW 15 (10.5-15) % Plt Count 210 (150-450) 10^3/ul MPV 9 (7.4-10.4) um3 Neut % (Auto) 64.7 (38-83) % Lymph % (Auto) 23.2 L (25-47) % Stone % (Auto) 11.1 H (1-9) % Eos % (Auto) 0.7 (0-6) % Baso % (Auto) 0.3 (0-2) % Absolute Neuts (auto) 8.4 H (1.5-7.7) 10^3/ul Absolute Lymphs (auto) 3.0 (1.0-4.8) 10^3/ul Absolute Monos (auto) 1.4 H (0-0.8) 10^3/ul Absolute Eos (auto) 0.1 (0-0.6) 10^3/ul Absolute Basos (auto) 0 (0-0.2) 10^3/ul Absolute Nucleated RBC 0 10^3/ul Nucleated RBC % 0 Sodium 137 (133-145) mmol/L Potassium 3.7 (3.5-5.0) mmol/L Chloride 106 (101-111) mmol/L Carbon Dioxide 26 (22-32) mmol/L Anion Gap 5 (2-11) mmol/L BUN 19 (6-24) mg/dL Creatinine 1.04 H (0.51-0.95) mg/dL Est GFR ( Amer) 86.9 (>60) Est GFR (Non-Af Amer) 67.6 (>60) BUN/Creatinine Ratio 18.3 (8-20) Glucose 98 (70-100) mg/dL Calcium 9.3 (8.6-10.3) mg/dL Total Bilirubin 0.50 (0.2-1.0) mg/dL AST 14 (13-39) U/L ALT 10 (7-52) U/L Alkaline Phosphatase 57 (34-104) U/L C-Reactive Protein < 1.00 (< 5.00) mg/L Total Protein 7.0 (6.4-8.9) g/dL Albumin 4.5 (3.2-5.2) g/dL Globulin 2.5 (2-4) g/dL Albumin/Globulin Ratio 1.8 (1-3) Lipase 39 (11.0-82.0) U/L Beta HCG, Quant < 0.60 mIU/mL Urine Color Straw Urine Appearance Clear Urine pH 6.0 (5-9) Ur Specific [place] 1.012 (1.010-1.030) Urine Protein Negative (Negative) Urine Ketones Negative (Negative) Urine Blood Negative (Negative) Urine Nitrate Negative (Negative) Urine Bilirubin Negative (Negative) Urine Urobilinogen Negative (Negative) Ur Leukocyte Esterase Negative (Negative) Urine Glucose Negative (Negative) Result Diagrams: 06/02/17 02:55 06/02/17 02:55 Lab Statement: Any lab studies that have been ordered have been reviewed, and results considered in the medical decision making process. Abdominal Pain Fem Course/Dx - Course Course Of Treatment: 22 female with pelvic pain earlier wed that has since dissipitated she is concerned about her iud. pelvic exam was normal no discharge cultures were taken - Diagnoses Provider Diagnoses: Pelvic pain Discharge - Discharge Plan Condition: Stable Disposition: HOME Patient Education Materials: Pelvic Pain in Women (ED) Referrals: Britt Byrnes MD [Primary Care Provider] - 3 Days Additional Instructions: RETURN TO THE EMERGENCY DEPARTMENT FOR CHANGING OR WORSENING SYMPTOMS. The documentation as recorded by the Marcin woodruff Alfonso accurately reflects the service I personally performed and the decisions made by Eusebio diehl Justine, MD.
[2017-06-02 04:31] VITALS: BP 120/75
== END 2017-06-02 04:00 | disposition home or self-care (01) ==
LOC: ED 23:42
DX: R10.2 Pelvic and perineal pain (principal); R10.9 Unspecified abdominal pain
CPT/HCPCS: 36415; 80053; 81003; 83690; 84702; 85025; 86140; 87480; 87491; 87510; 87591; 87661; 99282